=== PATIENT | male | born 1995 | race Caucasian/White ===

== ENCOUNTER 2020-06-24 18:13 | Emergency (ER) | payer OTHER, SELFPAY ==
[2020-06-24] VITALS (7 sets, daily range): BP systolic 117–127; BP diastolic 66–83; PULSE 62–71; RESP 9–18; TEMP 36.4; O2SAT 98–100; BMI 25.8
--- NOTE | 2020-06-24 19:24 | DI.RAD.S_ITS ---
PROCEDURE: XR CHEST 1V INDICATIONS: syncopy, family history of cardiac disease TECHNIQUE: One view of the chest was acquired. COMPARISON: None. FINDINGS: Surgical changes and devices: None. Lungs and pleura: Lungs are clear. No pleural effusions or pneumothorax. Mediastinum: Mediastinal contours appear normal. Heart size is normal. Bones and chest wall: No suspicious bony lesions. Overlying soft tissues appear unremarkable. IMPRESSION: No acute disease Dictated by: Bony Brooks M.D. on 06/24/2020 at 20:28 Approved by: Bony Brooks M.D. on 06/24/2020 at 20:29
[2020-06-24 19:55] LABS: Add Manual Diff / Slide Review NO; Basophils Absolute Auto 0 /uL (0-100); Basophils Percent Auto 0.2 % (0-2); Eosinophils Absolute Auto 200 /uL (0-450); Eosinophils Percent Auto 1.8 % (2-4); Hematocrit 41.8 % (41-53); Hemoglobin 14.5 g/dL (13.5-17.5); Lymphocytes Absolute Auto 1600 /uL (1100-4500); Lymphocytes Percent Auto 14.1 % (25-40); Mean Corpuscular HGB Conc 34.6 % (30-36); Mean Corpuscular Hemoglobin 32.2 PG (26-34); Monocytes Absolute Auto 500 /uL (0-900); Monocytes Percent Auto 4.7 % (3-14); Neutrophils Absolute Auto 9100 /uL (1500-7000); Neutrophils Percent Auto 79.2 % (50-75); Platelet Count 231 X10^3/uL (150-400); White Blood Cell Count 11.5 X10^3/uL (4.5-11.0)
[2020-06-24 20:04] LABS: Alanine Aminotransferase 25 IU/L (<50); Albumin 4.5 g/dL (3.5-5.0); Albumin Globulin Ratio 1.3 (1.0-2.8); Alkaline Phosphatase 76 U/L (38-126); Aspartate Aminotransferase 26 IU/L (17-59); BUN Creatinine Ratio 15.1 (6-22); Bilirubin Total 0.4 mg/dL (0.2-1.3); Blood Urea Nitrogen 14 mg/dL (9-20); Calcium 9.8 mg/dL (8.4-10.2); Carbon Dioxide 26 mmol/L (22-32); Chloride 105 mmol/L (98-107); Creatine Kinase 126 U/L (55-170); Estimated Glomerular Filt Rate > 60.0 mL/min (>60); Globulin 3.6 g/dL (1.7-4.1); Glucose 152 mg/dL (70-100); HEMOLYSIS 21 (0-50); Potassium 3.9 mmol/L (3.4-5.1); Sodium 138 mmol/L (137-145); Total Protein 8.1 g/dL (6.3-8.2)
--- NOTE | 2020-06-24 20:05 | ED.SYNCOPE ---
HPI - Syncope General Chief Complaint: Syncope Stated Complaint: Passed Out a Few Times, Hit Head Time Seen by Provider: 06/24/20 19:13 Source: patient and family Mode of arrival: Ambulatory Limitations: no limitations History of Present Illness HPI narrative: 25M non smoker with benign medical history presents with his and the chief complaint of an unprovoked syncopal episode just prior to arrival. He felt no prodromal symptoms. He's been in a normal state of health and has had no complaints. He denies any caffeine, nicotine, or alcohol. He uses no street drugs. He denies any trauma. He has multiple family members with WPW. He did have one episode of unexplained syncope years ago and had workup including CT, MRI without findings. He fell to the ground and his heard the fall but did not see it. He had no postictal symptoms. MD complaint: collapsed Onset (ago): hour(s) -: second(s) Prodromal symptoms: none Witnessed: no Context: at rest Injuries sustained associated with event: none Current symptoms: none Treatments prior to arrival: none Review of Systems Constitutional Constitutional: Denies chills, Denies fatigue, Denies fever(s), Denies frequent falls, Denies lethargy and Denies weakness Eyes Eyes: Denies change in vision, Denies eye discharge, Denies irritation and Denies loss of vision ENT Ears, Nose, Mouth, and Throat: Denies change in voice, Denies dizziness, Denies neck pain, Denies sore throat and Denies throat swelling Cardiovascular Cardiovascular: Denies chest pain, Denies irregular heart rhythm, Denies lightheadedness, Denies palpitations, Denies dyspnea, Denies dyspnea on exertion and Denies orthopnea Comments: syncope Respiratory Respiratory: Denies cough, Denies dyspnea, Denies dyspnea on exertion and Denies wheezing Gastrointestinal Gastrointestinal: Denies abdominal pain, Denies change in bowel habits, Denies diarrhea, Denies nausea and Denies vomiting Musculoskeletal Musculoskeletal: Denies neck pain and Denies numbness Integumentary/Breasts Skin/Breast: Denies pruritus, Denies erythema, Denies rash and Denies wounds Neurologic Neurologic: Denies behavioral changes, Denies confusion, Denies dizziness, Denies frequent falls, Denies loss of vision, Denies numbness and Denies weakness Psychiatric Psychiatric: Denies anxiety, Denies behavioral changes, Denies confusion, Denies depression, Denies homicidal ideation and Denies suicidal ideation Endocrine Endocrine: Denies fatigue, Denies flushing and Denies palpitations Hematologic/Lymphatic Hematologic/Lymphatic: Denies easy bruising Allergic/Immunologic Allergic/Immunologic: Denies urticaria, Denies throat swelling and Denies wheezing Patient History Social History Smoking Status: Never smoker Smoking Status: Never smoker alcohol intake frequency: holidays/special occasions only Substance Use Type: does not use Exam Narrative Exam Narrative: GENERAL: [25] year old patient appears stated age. Well-nourished, well-developed patient, in mild distress. HEAD: Atraumatic. Normocephalic. EYES: Pupils equal round and reactive. Extraocular motions intact. No scleral icterus. No injection or drainage. ENT: Nose without bleeding, purulent drainage. Throat without erythema, tonsillar hypertrophy or exudate. Airway patent. NECK: Trachea midline. Non tender CARDIOVASCULAR: Regular rate and rhythm without murmurs, gallops, or rubs. RESPIRATORY: Clear to auscultation. Breath sounds equal bilaterally. No wheezes, rales, or rhonchi. GASTROINTESTINAL: Abdomen soft, non-tender, nondistended. EXTREMITIES: No edema or joint tenderness. BACK: Nontender without deformity or crepitance. No flank tenderness. NEURO: AOx3. SKIN: No rash or erythema of visible areas Initial Vital Signs Initial Vital Signs: Vital Signs Temperature 97.6 F 06/24/20 18:27 Pulse Rate 66 06/24/20 18:27 Respiratory Rate 16 06/24/20 18:27 Blood Pressure 127/74 06/24/20 18:27 Pulse Oximetry 98 06/24/20 18:27 Course Orders Ordered: Discontinued Medications Sodium Chloride (Normal Saline 0.9%) 1,000 mls @ 150 mls/hr IV CONT BRAIN Last Infusion: 06/24/20 21:14 Dose: 0 mls/hr Documented by: Admin: 06/24/20 20:14 Dose: 150 mls/hr Documented by: MAURICIO Consultations Consultation #1: call to Dr. Rosas, who has reviewed EKG and concurs that WPW is to be considered. He will see him in clinic soon for echo, Zio, etc. No need for admission or transfer Vital Signs Vital signs: Vital Signs - 8 hr 06/24/20 18:27 06/24/20 18:57 06/24/20 18:58 Temperature 97.6 F Pulse Rate 66 62 Respiratory Rate 16 Blood Pressure 127/74 126/74 Pulse Oximetry 98 100 99 06/24/20 19:00 06/24/20 19:30 Temperature Pulse Rate 66 62 Respiratory Rate 17 9 L Blood Pressure 124/83 117/66 Pulse Oximetry 98 99 MDM - Syncope Lab Data Result diagrams: 06/24/20 19:40 06/24/20 19:40 Labs: Lab Results 06/24/20 06/24/20 06/24/20 Range/Units 19:40 19:40 19:40 WBC 11.5 H (4.5-11.0) X10^3/uL RBC 4.50 (4.5-5.9) X10^6/uL Hgb 14.5 (13.5-17.5) g/dL Hct 41.8 (41-53) % MCV 93.0 (80-100) fL MCH 32.2 (26-34) PG MCHC 34.6 (30-36) % RDW 13.0 (11.6-14.8) % Plt Count 231 (150-400) X10^3/uL Neut % (Auto) 79.2 H (50-75) % Lymph % (Auto) 14.1 L (25-40) % Kidder % (Auto) 4.7 (3-14) % Eos % (Auto) 1.8 L (2-4) % Baso % (Auto) 0.2 (0-2) % Neut # (Auto) 9100 H (3763-6021) /uL Lymph # (Auto) 1600 (3660-1582) /uL Kidder # (Auto) 500 (0-900) /uL Eos # (Auto) 200 (0-450) /uL Baso # (Auto) 0 (0-100) /uL D-Dimer < 200 (<230) ng/mL Sodium 138 (137-145) mmol/L Potassium 3.9 (3.4-5.1) mmol/L Chloride 105 (98-107) mmol/L Carbon Dioxide 26 (22-32) mmol/L BUN 14 (9-20) mg/dL Creatinine 0.93 (0.66-1.25) mg/dL Estimated GFR > 60.0 (>60) mL/min BUN/Creatinine Ratio 15.1 (6-22) Glucose 152 H (70-100) mg/dL Calcium 9.8 (8.4-10.2) mg/dL Total Bilirubin 0.4 (0.2-1.3) mg/dL AST 26 (17-59) IU/L ALT 25 (<50) IU/L Alkaline Phosphatase 76 (38-126) U/L Total Creatine Kinase 126 (55-170) U/L CK-MB (CK-2) 0.68 (<2.37) ng/mL CK-MB (CK-2) Rel Index 0.5 L (1.5-5.0) % Troponin I < 0.012 (0.01-0.034) ng/mL NT-Pro-B Natriuret Pep 57 (<125) pg/mL Total Protein 8.1 (6.3-8.2) g/dL Albumin 4.5 (3.5-5.0) g/dL Globulin 3.6 (1.7-4.1) g/dL Albumin/Globulin Ratio 1.3 (1.0-2.8) ECG Data Attestation: I personally reviewed and interpreted this ECG as follows: Interpretation: NSR with short IN and questionable mild delta wave. No ectopy. No blocks. No ST segmental elevation or depression, no T wave abnormalities. Discharge Plan Departure Patient Disposition: Home Clinical Impression: [id number]-[id number]-Mmumy (WPW) pattern Discharge Date/Time: 06/24/20 21:15 Instructions: DI for Syncope in Adults (Fainting) Activity Restrictions/Additional Instructions: *You have been diagnosed with [syncopal episode, possibly due to WPW] *What to do: *I spoke with a senior patrol agent eneida (Dr. Shmuel Rosas) who recommends an outpatient workup including echocardiogram and computer video game designer. He took your info and his office will reach out to you, but you will likely need a referral from your primary care doctor. Please call them tomorrow to get the ball rolling. *Return to ER if you should have any new, worsening or concerning symptoms Referrals: Chapito Rosas MD [Physician] -
[2020-06-24 20:06] LABS: D Dimer < 200 ng/mL (<230)
[2020-06-24 20:13] LABS: NT-proBNP (BNP-Adult 18+) 57 pg/mL (<125)
[2020-06-24] MEDS: SODIUM CHLORIDE 0.9% 1,000 ML 150 ML IV (20:14)
[2020-06-24 20:19] LABS: CKMB % Relative Index 0.5 % (1.5-5.0); Creatine Kinase MB 0.68 ng/mL (<2.37)
[2020-06-24 20:52] LABS: Troponin I < 0.012 ng/mL (0.01-0.034)
== END 2020-06-24 21:15 | disposition home or self-care (01) ==
PROVIDERS: Emergency Provider Emergency Medicine
DX: R55 Syncope and collapse (principal); I45.6 Pre-excitation syndrome
CPT/HCPCS: 36415; 71045; 80053; 82550; 82553; 83880; 84484; 85025; 85379; 93005; 96360; 99284